=== PATIENT | male | born 1955 | race Caucasian/White ===

== ENCOUNTER → 2024-09-08 06:56 | Outpatient (REF) | payer MEDICARE, SELFPAY | LOC: PAVMRI 06:56 | PROVIDERS: ATTENDING PHYSICIAN Physician Assistant; FAMILY PHYSICIAN Family Medicine; REFERRING PHYSICIAN Physical Medicine & Rehabilitation | DX: M54.16 Radiculopathy, lumbar region (principal); M48.061 Spinal stenosis, lumbar region without neurogenic claudication | CPT/HCPCS: 72148 ==

== ENCOUNTER → 2024-12-09 10:26 | Outpatient (REF) | payer MEDICARE, SELFPAY | LOC: RCS 10:26 | PROVIDERS: ATTENDING PHYSICIAN Physical Medicine & Rehabilitation | DX: Z01.818 Encounter for other preprocedural examination (principal) | CPT/HCPCS: 93005 ==

== ENCOUNTER → 2025-01-08 13:43 | Outpatient (REF) | payer MEDICARE, SELFPAY | LOC: RAD 13:43 | PROVIDERS: ATTENDING PHYSICIAN Urology; FAMILY PHYSICIAN Family Medicine | DX: C61 Malignant neoplasm of prostate (principal) | CPT/HCPCS: 74018 ==